=== PATIENT | male | born 1980 | race Caucasian/White ===

== ENCOUNTER 2022-01-28 20:22 | Emergency (ER) | payer OTHER ==
[~2022-01-28] VITALS: Ht 188 cm; Wt 131.5 kg
[2022-01-28] MEDS ORDERED: HYDROCODONE/APAP 5MG-325MG TAB PO ONE (21:00)
[2022-01-28] MEDS ORDERED: NAPROXEN250 MG PO (23:11)
== END 2022-01-28 23:20 | disposition home or self-care (01) ==
LOC: ER 20:35
DX: M54.50 Low back pain, unspecified (principal); R07.89 Other chest pain; R51.9 Headache, unspecified; V43.52XA Car driver injured in collision with other type car in traffic accident, initial encounter; Y92.488 Other paved roadways as the place of occurrence of the external cause; I10 Essential (primary) hypertension; E11.9 Type 2 diabetes mellitus without complications; E78.5 Hyperlipidemia, unspecified
CPT/HCPCS: 70450; 71046; 72125; 99283

== ENCOUNTER 2025-03-14 12:28 | Emergency (ER) | payer OTHER ==
[~2025-03-14] VITALS: Ht 188 cm; Wt 131.5 kg
[~2025-03-14 12:28] MED LIST: NAPROXEN250 MG PO
[2025-03-14 12:33] VITALS: TEMP 97.6
[2025-03-14] MEDS ORDERED: LISINOPRIL10 MG PO (12:39)
[2025-03-14] MEDS ORDERED: OZEMPIC2 MG/0.75 SQ (12:39)
[2025-03-14] MEDS ORDERED: GLIPIZIDE5 MG PO (12:39)
[2025-03-14] MEDS ORDERED: METFORMIN HCL500 M2 PO (12:39)
[2025-03-14 14:42] VITALS: PULSE 73; RESP 18; O2SAT 99
== END 2025-03-14 15:00 | disposition home or self-care (01) ==
LOC: ER 12:33
DX: S20.211A Contusion of right front wall of thorax, initial encounter (principal); W01.0XXA Fall on same level from slipping, tripping and stumbling without subsequent striking against object, initial encounter; Y93.01 Activity, walking, marching and hiking; Y92.481 Parking lot as the place of occurrence of the external cause; I10 Essential (primary) hypertension; E11.9 Type 2 diabetes mellitus without complications; E78.5 Hyperlipidemia, unspecified
CPT/HCPCS: 71250; 99282